=== PATIENT | female | born 1965 | race American Indian/Alaskan Native ===

== ENCOUNTER 2018-01-15 02:25 | Inpatient (IN) | payer BC ==
[2018-01-15] MEDS ORDERED: NACL 0.9% 1000 ML 1,000 ML IV ONE ×2 (02:37→14:59)
[2018-01-15] MEDS ORDERED: ZOFRAN ODT PO ONE (02:40)
[2018-01-15 02:56] LABS: Basophils # (Auto) 0.1 K/mm3 (0.0-0.1); Basophils % (Auto) 0.5 % (0.0-1.8); Eosinophils % (Auto) 0.1 % (0.0-4.3); Hematocrit 39.7 % (30.3-42.9); Hemoglobin 13.2 gm/dl (10.1-14.3); Lymphocytes # (Auto) 2.4 K/mm3 (1.2-5.4); Mean Corpuscular HGB Conc 33 % (30-34); Mean Corpuscular Hemoglobin 31 pg (28-32); Mean Corpuscular Volume 94 fl (79-97); Monocytes # (Auto) 0.7 K/mm3 (0.0-0.8); Monocytes % (Auto) 4.9 % (0.0-7.3); Platelet Count 529 K/mm3 (140-440); Red Blood Count 4.22 M/mm3 (3.65-5.03); Red Cell Distribution Width 13.5 % (13.2-15.2)
[2018-01-15 03:15] LABS: Alanine Aminotransferase 17 units/L (7-56); Albumin 4.7 g/dL (3.9-5); BUN/Creatinine Ratio 15; Blood Urea Nitrogen 12 mg/dL (7-17); Hemolysis Index 7
--- NOTE | 2018-01-15 03:32 | Cat Scan Report ---
FINAL REPORT EXAM: CT ABDOMEN PELVIS WO CON HISTORY: R/O SBO COMPARISON: None available. TECHNIQUE: Contiguous axial images were obtained. Additional sagittal and coronal reformatted images were obtained. FINDINGS: Partial visualization of bilateral mammoplasties which are grossly intact. Mild linear atelectasis at the visualized lung bases. No calcified gallstones. Liver, spleen, pancreas are grossly unremarkable. Mild nodular thickening of adrenal glands. No nephrolithiasis or hydronephrosis. Aorta and IVC normal in caliber. Mild calcification aorta. No distal ureteral urinary bladder calculi. There are few pelvic phleboliths which appear to be separate from the distal ureters. Uterus is grossly unremarkable. Bilateral ovaries are grossly unremarkable. No free fluid in the pelvis. There are few prominent pelvic lymph nodes. For example there is a left external iliac chain lymph node measuring 11 x 12 millimeters. On the right, is external iliac chain lymph node measuring 11 x 8 millimeters in axial dimension. There are few prominent but technically not enlarged retroperitoneal lymph nodes. Pelvic lymph nodes could be reactive. There is dilatation of fluid-filled small bowel loops throughout the abdomen upper pelvis. Dilated small bowel loops measure up to 4.8 centimeters in greatest diameter and the left lower abdomen. There has been prior surgery involving small bowel loops in the left mid abdomen. This appears to be the transition point is concerning for obstruction at the surgical site. More distal small bowel loops are relatively decompressed. No pneumatosis or free air. There is fluid-like stool in the right colon. No evidence of complete small bowel obstruction at this time. The appendix is not visualized may be small in size are surgically absent. Lumbar vertebral body heights are preserved. Bony pelvis is grossly intact. IMPRESSION: Findings compatible with developing small bowel obstruction. Transition point appears to be at site of prior surgery at the anastomosis between small bowel loops in the left lower abdomen. There is dilatation of small bowel loops proximal to the anastomotic site measuring up to 4.8 centimeters in diameter. There is some stool-like material within the dilated small bowel which could indicate a partially chronic component to this process. No pneumatosis or free air.
[2018-01-15 03:42] LABS: Bacteria,Urine 1+ /HPF (Negative); Bilirubin,Urine NEG (Negative); Blood,Urine NEG (Negative); Color,Urine Yellow (Yellow); Mucus,Urine FEW /HPF; Protein,Urine >500 mg/dL (Negative); Urobilinogen,Urine < 2.0 mg/dL (<2.0)
[2018-01-15] MEDS ORDERED: ZOFRAN IV ONE (04:14)
[2018-01-15] MEDS ORDERED: DILAUDID IV ONE (04:14)
--- NOTE | 2018-01-15 05:16 | Emergency Department Report ---
ED General Adult HPI - General Chief complaint: Abdominal Pain Stated complaint: ABD PAIN VOMITING Time Seen by Provider: 01/15/18 05:13 Source: patient Mode of arrival: Ambulatory Limitations: No Limitations - History of Present Illness Initial comments: 1 day of upper abdominal pain that is constant. Made worse with eating. Associated with nausea and vomiting. No diarrhea. Afebrile. It feels like the last time she had a small bowel obstruction. That was 10 years ago. No urinary or vaginal symptoms. No flatus. Severity scale (0 -10): 8 - Related Data Home Medications Medication Instructions Recorded Confirmed Last Taken Aspirin [Adult Aspirin] 81 mg PO DAILY 01/15/18 01/15/[address] [Senait De Leon] 75 mg PO DAILY 01/15/18 01/15/18 Unknown Metoprolol [Lopressor TAB] 50 mg PO DAILY 01/15/18 01/15/18 Unknown Spironolactone-Hctz 25-25 Tab 25 mg PO DAILY 01/15/18 01/15/18 Unknown Allergies Allergy/AdvReac Type Severity Reaction Status Date / Time No Known Allergies Allergy Unverified 01/15/18 02:32 ED Review of Systems ROS: Stated complaint: ABD PAIN VOMITING Other details as noted in HPI Comment: All other systems reviewed and negative Gastrointestinal: abdominal pain, nausea, vomiting ED Past Medical Hx - Past Medical History Previous Medical History?: Yes Additional medical history: SBO - Surgical History Past Surgical History?: Yes Additional Surgical History: SB - Social History Smoking Status: Former Smoker Substance Use Type: Alcohol - Medications Home Medications: Home Medications Medication Instructions Recorded Confirmed Last Taken Type Aspirin [Adult Aspirin] 81 mg PO DAILY 01/15/18 01/15/[address] [Senait De Leon] 75 mg PO DAILY 01/15/18 01/15/18 Unknown History Metoprolol [Lopressor TAB] 50 mg PO DAILY 01/15/18 01/15/18 Unknown History Spironolactone-Hctz 25-25 Tab 25 mg PO DAILY 01/15/18 01/15/18 Unknown History ED Physical Exam - General Limitations: No Limitations General appearance: alert, in no apparent distress - Head Head exam: Present: atraumatic, normocephalic - Eye Eye exam: Present: normal appearance - ENT ENT exam: Present: mucous membranes moist - Neck Neck exam: Present: normal inspection - Respiratory Respiratory exam: Present: normal lung sounds bilaterally. Absent: respiratory distress - Cardiovascular Cardiovascular Exam: Present: regular rate, normal rhythm. Absent: systolic murmur, diastolic murmur, rubs, gallop - GI/Abdominal GI/Abdominal exam: Present: soft, tenderness (bilateral upper abd pain), normal bowel sounds. Absent: guarding, rebound - Extremities Exam Extremities exam: Present: normal inspection - Back Exam Back exam: Present: normal inspection - Neurological Exam Neurological exam: Present: alert, oriented X3 - Psychiatric Psychiatric exam: Present: normal affect, normal mood - Skin Skin exam: Present: warm, dry, intact, normal color. Absent: rash ED Course Vital Signs 01/15/18 01/15/18 01/15/18 02:24 04:00 04:03 Temperature 97.8 F 98.2 F Pulse Rate 84 73 75 Respiratory 20 15 14 Rate Blood Pressure 145/97 Blood Pressure 134/87 [Right] O2 Sat by Pulse 94 94 95 Oximetry 01/15/18 01/15/18 01/15/18 04:15 04:30 04:32 Temperature Pulse Rate 76 66 Respiratory 10 L 10 L 14 Rate Blood Pressure 136/83 125/77 Blood Pressure [Right] O2 Sat by Pulse 97 90 Oximetry 01/15/18 04:44 Temperature Pulse Rate Respiratory 11 L Rate Blood Pressure Blood Pressure [Right] O2 Sat by Pulse 99 Oximetry ED Medical Decision Making - Lab Data Result diagrams: 01/15/18 02:44 01/15/18 02:44 - Medical Decision Making 52-year-old female with past medical history of gastric bypass surgery years ago, small bowel obstruction that presents with abdominal pain. His eyes are stable. Patient is well-appearing. Moderate abdominal pain on exam. Mild leukocytosis appreciated. Likely this is reactionary given the patient's history of vomiting. CT abdomen and pelvis shows evidence of a small bowel obstruction. Patient has been given IV fluids/social friend says Dilaudid. She will be admitted for further management. - Differential Diagnosis SBO, pancreatitis, UTI, gastroenteritis, cholecystitis, sepsis Critical care attestation.: If time is entered above; I have spent that time in minutes in the direct care of this critically ill patient, excluding procedure time. ED Disposition Clinical Impression: Small bowel obstruction Disposition: OP ADMIT IP TO THIS HOSP Is pt being admited?: Yes Does the pt Need Aspirin: No Condition: Stable Instructions: Abdominal Pain (ED) Referrals: PRIMARY CARE, [Primary Care Provider] - 3-5 Days
[2018-01-15] MEDS ORDERED: ZOFRAN IV PRN (06:08)
[2018-01-15] MEDS ORDERED: TYLENOL PR PRN (06:09)
[2018-01-15] MEDS ORDERED: NACL 0.9% 1000 ML 1,000 ML IV SCH (07:00)
--- NOTE | 2018-01-15 09:00 | History and Physical Report ---
CHIEF COMPLAINT: Abdominal pain. HISTORY OF PRESENTING ILLNESS: The patient is a 52-year-old female who has been having abdominal pain going on since yesterday associated with nausea and vomiting. There is no history of fever, no history of chills. The patient also denied history of dizziness, chest pain or shortness of breath and states that she has not been passing any gas or stools and presented to the Emergency Room where she was evaluated and found to have small bowel obstruction developing on CT scan report. PAST MEDICAL HISTORY: Pertinent for small bowel obstruction. Also, the patient has past medical history of hypertension. PAST SURGICAL HISTORY: Pertinent for surgery for small bowel obstruction. FAMILY HISTORY: Noncontributory. SOCIAL HISTORY: The patient is a former cigarette smoker, but does not smoke cigarette anymore. The patient drinks alcohol, does not use illicit drugs. MEDICATIONS: The patient is on aspirin 81 mg by mouth daily, Voltaren DS 75 mg by mouth daily, Lopressor 50 mg by mouth daily, spironolactone/hydrochlorothiazide 25/25 one by mouth daily. ALLERGIES: There are no known drug allergies. REVIEW OF SYSTEMS: CONSTITUTIONAL: There is no fever, no chills, no diaphoresis. HEENT: There is no headache or sore throat. CARDIOVASCULAR SYSTEM: There is no chest pain or orthopnea. RESPIRATORY SYSTEM: There is no shortness of breath or cough. GASTROINTESTINAL SYSTEM: Abdominal pain present. Nausea and vomiting present. NEUROLOGICAL SYSTEM: There is no numbness, no dizziness, no altered mental status. MUSCULOSKELETAL SYSTEM: There is no joint pain or swelling. DERMATOLOGICAL SYSTEM: There is no skin rash or itching. GENITOURINARY SYSTEM: There is no dysuria, hematuria, or flank pain. Rest of system review is normal. PHYSICAL EXAMINATION: GENERAL: At the time of exam, the patient was found to be alert, oriented x 3 and not in acute distress. VITAL SIGNS: At the time of initial presentation show temperature of 97.8 degrees Fahrenheit, pulse of 84, respiration 20, blood pressure 145/97, O2 sat of 94% on room air. HEENT: Shows pupils to be equal, round, reactive to light and accommodating. Extraocular muscles are intact. NECK: Neck is supple with no JVD or carotid bruit. CARDIOVASCULAR SYSTEM: Shows normal first and second heart sounds with no gallops or murmur. RESPIRATORY SYSTEM: Shows good air entry on both sides of the lung with no abnormal breath sounds. GASTROINTESTINAL SYSTEM: Shows abdomen to be full, soft with generalized tenderness, but no guarding, no rigidity and no rebound tenderness. Bowel sound was hypoactive. There is no organomegaly elicited. MUSCULOSKELETAL SYSTEM: Shows no joint swelling or tenderness. DERMATOLOGICAL SYSTEM: Shows no skin rash. GENITOURINARY SYSTEM: Showing no costovertebral angle tenderness. PERTINENT LABORATORY AND IMAGING STUDIES: The patient had CBC done that shows elevated white count of 13,800 with normal hemoglobin and normal hematocrit and slightly elevated platelet counts of 529. CBC differential shows elevated segmented neutrophil of 77.5%. The patient's chemistry showed low sodium of 136, low chloride of 92.7, elevated blood glucose of 160. High total protein of 8.4. Urinalysis show yellow clear urine with high urine pH of 8, trace urine leukocyte esterase and elevated urine WBC of 11. Imaging studies; the patient has CT of the abdomen and pelvis without contrast done that shows evidence of development of small bowel obstruction. DIAGNOSES: 1. Small bowel obstruction. 2. Urinary tract infection. PLAN: 1. The patient will be admitted to medical/surgical burgess. 2. The patient will have nasogastric suctioning tube dropped into the stomach with intermittent low wall suctioning applied. 3. The patient will be on IV morphine 2 mg every 4 hours as needed for pain and IV Zofran 4 mg every 8 hours as needed for nausea and vomiting. 4. The patient will be on normal saline at 125 mL an hour. 5. The patient will be on Tylenol 650 mg rectal every 4 hours for fever and headache and will be on IV Levaquin 750 mg daily. 6. The patient will be on IV Levaquin 750 mg daily. 7. The patient will have a general surgical consult with Dr. Michael. JOB# [id number] OCN/NTS
[2018-01-15] MEDS: MORPHINE IV PRN ×2 (10:46→23:09)
[2018-01-15] MEDS ORDERED: PNEUMOVAX 23 IM ONE (12:00)
[2018-01-15] MEDS: LEVAQUIN 750MG/150ML 750 MG/150 ML BAG IV SCH (12:32)
[2018-01-15] MEDS: HEPARIN SUB-Q SCH ×2 (12:35→22:35)
--- NOTE | 2018-01-15 13:05 | Event Note ---
Date: 01/15/18 Patient is 52 yo with small bowel obstruction. keep NPO. Surgeon to see.
--- NOTE | 2018-01-15 15:10 | Consultation ---
History of Present Illness Consult date: 01/15/18 Reason for consult: abdominal pain Requesting physician: ANA HUGO Chief complaint: Abdominal pain - History of present illness History of present illness: 52yo F with a history of SBO and bowel resection 10 years ago presents to the ED with a 1 day history of acute onset abdominal pain, nausea, vomiting. She reports she has not had a bowel movement or pass gas in at least one to 2 days. She reports that she is feeling a little bit better. There is no nausea or vomiting now. Her abdominal pain is less. She has not passed any gas or had any bowel movements yet. She is burping. History significant for having a bowel obstruction secondary to adhesions from a bowel repair that was done during a tubal ligation. At that time, she had to be rushed to surgery for the obstruction and a small bowel resection was done with primary anastomosis. About a year or 2 after that point, she began requiring stool softener is to have a bowel movement. If she did not take her mag 07 stool softener, she would not have a bowel movement. Last week, she had a viral illness that caused her to return home from work early. 2 days ago she did not take her stool softener, and woke up in the morning with upper abdominal pain. She had nausea and vomiting as well. The emesis was clear and with mucus. As mentioned above, she is feeling better now. Denies any recent F/ C. She it last week. Past History Past Medical History: hypertension Past Surgical History: (times 2), bowel surgery (small bowel resection for SBO 10 years ago), Other (BTL with bowel repair.) Social history: smoking (hooka - occasionally). denies: alcohol abuse (may have 1-2 drinks every few weeks), prescription drug abuse, IV drug use Family history: denies: no significant family history Medications and Allergies Allergies Allergy/AdvReac Type Severity Reaction Status Date / Time No Known Allergies Allergy Unverified 01/15/18 02:32 Home Medications Medication Instructions Recorded Confirmed Last Taken Type Aspirin [Adult Aspirin] 81 mg PO DAILY 01/15/18 01/15/[address] [Voltaren Dr] 75 mg PO DAILY 01/15/18 01/15/18 Unknown History Metoprolol [Lopressor TAB] 50 mg PO DAILY 01/15/18 01/15/18 Unknown History Spironolactone-Hctz 25-25 Tab 25 mg PO DAILY 01/15/18 01/15/18 Unknown History Active Meds: Active Medications Acetaminophen (Tylenol) 650 mg ID Q4H PRN PRN Reason: Fever >101 Heparin Sodium (Porcine) (Heparin) 5,000 unit SUB-Q Q12HR THAIS Last Admin: 01/15/18 12:35 Dose: 5,000 unit Levofloxacin/Dextrose (Levaquin 750mg/150ml) 750 mg in 150 mls @ 100 mls/hr IV Q24HR THAIS; Protocol Last Admin: 01/15/18 12:32 Dose: 100 mls/hr Metronidazole (Flagyl 500 Mg/100 Ml) 500 mg in 100 mls @ 100 mls/hr IV Q8HR THAIS ; Protocol Sodium Chloride (Nacl 0.9% 1000 Ml) 1,000 mls @ 125 mls/hr IV DIRECT THAIS Last Admin: 01/15/18 12:32 Dose: 125 mls/hr Sodium Chloride (Nacl 0.9% 1000 Ml) 1,000 mls @ 999 mls/hr IV BOLUS ONE Stop: 01/15/18 15:59 Morphine Sulfate (Morphine) 2 mg IV Q4H PRN PRN Reason: Pain, Moderate (4-6) Last Admin: 01/15/18 10:46 Dose: 2 mg Ondansetron HCl (Zofran) 4 mg IV Q8H PRN PRN Reason: Nausea And Vomiting Review of Systems - Constitutional no fever, no chills - EENT Ears, nose, mouth and throat: sore throat (little bit left over from last week) - Cardiovascular no chest pain - Respiratory no cough, no shortness of breath - Gastrointestinal abdominal pain (in mid upper abdomen), constipation, belching, no nausea, no vomiting, no hematemesis, no coffee ground emesis, no BRBPR, no melena, no hematochezia, no heartburn, no indigestion - Genitourinary Genitourinary: no pelvic pain, no dysuria - Muskuloskeletal no low back pain - Integumentary no rash - Hematologic/Lymphatic no easy bruising, no easy bleeding Exam Vital Signs Temp Pulse Resp BP Pulse Ox 97.8 F 84 20 145/97 94 01/15/18 02:24 01/15/18 02:24 01/15/18 02:24 01/15/18 02:24 01/15/18 02:24 - General physical appearance Positive: no distress, no pain, other (pleasant female. appears comfortable. Does not appear ill. Working on her laptop when I entered) - Eyes Positive: normal occular movement. Negative: pale, icteric - Respiratory Positive: normal expansion, normal respiratory effort, clear to auscultation - Cardiovascular Rhythm: regular - Abdomen Abdomen: Present: soft, tender (very minimal in upper midline), bowel sounds hypoactive (but normal sounding. No high pitched bowel sounds. No hollow sounds. ), surgical scars (well healed. ), other (no pelvic shake tenderness). Absent: distended, guarding, rigid, wound Hernia: none - Integumentary no rash, no growths, no abnormal pigmentation - Neurologic Neurologic: alert and oriented to time, place and person, motor strength and sensation are grossly intact - Psychiatric Psychiatric: appropriate mood/affect, intact judgment & insight Results - Labs 01/15/18 02:44 01/15/18 02:44 Abnormal lab results 01/15/18 01/15/18 01/15/18 Range/Units 02:44 02:44 03:07 WBC 13.8 H (4.5-11.0) K/mm3 Plt Count 529 H (140-440) K/mm3 Seg Neutrophils % 77.5 H (40.0-70.0) % Seg Neutrophils # 10.7 H (1.8-7.7) K/mm3 Sodium 136 L (137-145) mmol/L Chloride 92.7 L (98-107) mmol/L Glucose 160 H (65-100) mg/dL Total Protein 8.4 H (6.3-8.2) g/dL Urine pH 8.0 H (5.0-7.0) Urine WBC (Auto) 11.0 H (0.0-6.0) /HPF Diabetes panel 01/15/18 Range/Units 02:44 Sodium 136 L (137-145) mmol/L Potassium 4.0 (3.6-5.0) mmol/L Chloride 92.7 L (98-107) mmol/L Carbon Dioxide 28 (22-30) mmol/L BUN 12 (7-17) mg/dL Creatinine 0.8 (0.7-1.2) mg/dL Glucose 160 H (65-100) mg/dL Calcium 10.0 (8.4-10.2) mg/dL AST 18 (5-40) units/L ALT 17 (7-56) units/L Alkaline Phosphatase 83 (35-129) units/L Total Protein 8.4 H (6.3-8.2) g/dL Albumin 4.7 (3.9-5) g/dL Calcium panel 01/15/18 Range/Units 02:44 Calcium 10.0 (8.4-10.2) mg/dL Albumin 4.7 (3.9-5) g/dL Pituitary panel 01/15/18 Range/Units 02:44 Sodium 136 L (137-145) mmol/L Potassium 4.0 (3.6-5.0) mmol/L Chloride 92.7 L (98-107) mmol/L Carbon Dioxide 28 (22-30) mmol/L BUN 12 (7-17) mg/dL Creatinine 0.8 (0.7-1.2) mg/dL Glucose 160 H (65-100) mg/dL Calcium 10.0 (8.4-10.2) mg/dL Adrenal panel 01/15/18 Range/Units 02:44 Sodium 136 L (137-145) mmol/L Potassium 4.0 (3.6-5.0) mmol/L Chloride 92.7 L (98-107) mmol/L Carbon Dioxide 28 (22-30) mmol/L BUN 12 (7-17) mg/dL Creatinine 0.8 (0.7-1.2) mg/dL Glucose 160 H (65-100) mg/dL Calcium 10.0 (8.4-10.2) mg/dL Total Bilirubin 0.30 (0.1-1.2) mg/dL AST 18 (5-40) units/L ALT 17 (7-56) units/L Alkaline Phosphatase 83 (35-129) units/L Total Protein 8.4 H (6.3-8.2) g/dL Albumin 4.7 (3.9-5) g/dL - Imaging CT scan - abdomen: report reviewed, image reviewed CT scan - pelvis: report reviewed, image reviewed Assessment and Plan - Patient Problems (1) Small bowel obstruction Current Visit: Yes Status: Acute Plan to address problem: pt is stable. Abdomen is fairly benign. she feels as though things are already getting better. Can hold off on NGT as she is not symptomatic and her stomach/ proximal bowel are not dilated. Will bolus with extra fluids as she appears dehydrated. No need for urgent surgical intervention. Will follow with serial exams. Would keep NPO for now. Chewing gum is ok. Her history is suggestive that she has a stenotic area in the small bowel. Probably involving the anastomosis. For this, if we do not end up doing surgery now, we will get a small bowel follow through once she has recovered and then discuss elective surgery if there is a stenotic segment. Pt understands and is in agreement. Please call with any questions. Time=45min
[2018-01-15] MEDS: FLAGYL 500 MG/100 ML 500 MG/100 ML BAG IV SCH ×2 (16:27→22:34)
[2018-01-16] MEDS: D5NS 1,000 ML IV SCH ×2 (02:57→18:00)
[2018-01-16] MEDS: FLAGYL 500 MG/100 ML 500 MG/100 ML BAG IV SCH ×3 (06:19→23:04)
[2018-01-16 07:00] LABS: Hematocrit 31.4 % (30.3-42.9); Hemoglobin 10.5 gm/dl (10.1-14.3); Mean Corpuscular HGB Conc 33 % (30-34); Mean Corpuscular Hemoglobin 32 pg (28-32); Mean Corpuscular Volume 95 fl (79-97); Platelet Count 404 K/mm3 (140-440); Red Blood Count 3.32 M/mm3 (3.65-5.03); Red Cell Distribution Width 13.7 % (13.2-15.2)
[2018-01-16 07:18] LABS: BUN/Creatinine Ratio 11; Blood Urea Nitrogen 8 mg/dL (7-17); Calcium 8.2 mg/dL (8.4-10.2); Hemolysis Index 1
--- NOTE | 2018-01-16 08:17 | Progress Note ---
Assessment and Plan - Patient Problems (1) Small bowel obstruction Current Visit: Yes Status: Acute Plan to address problem: pt is stable. Patient appears to be doing well. Bowels seem to be opening up. We'll begin clear liquid diet today. If she does well today, I will advance her diet tomorrow and start her on a bowel regimen. If that is tolerated, she may be discharged home over the weekend. I have asked that she follow-up with us in a few weeks to discuss further evaluation of her small bowel. Her history is suggestive that she has a stenotic area in the small bowel. Probably involving the anastomosis. For this, if we do not end up doing surgery now, we will get a small bowel follow through once she has recovered and then discuss elective surgery if there is a stenotic segment. Pt understands and is in agreement. Please call with any questions. Time=10min Subjective Date of service: 01/16/18 Patient Reports: Positive: no new complaints, feels better, pain is less, bowel movement (x2). Negative: nausea, vomiting Objective Vital Signs - 12hr 01/15/18 01/16/18 23:45 05:28 Temperature 98.3 F 98.0 F Pulse Rate 71 63 Respiratory 18 16 Rate Blood Pressure 119/61 114/71 O2 Sat by Pulse 97 98 Oximetry - General physical appearance no distress, no pain, other (looks well) - Eyes normal occular movement - Respiratory normal expansion, normal respiratory effort - Abdomen soft, not tender, not distended, not guarding, not rigid - Psychiatric oriented to time, oriented to person, oriented to place, speech is normal, memory intact - Labs 01/16/18 05:37 01/16/18 05:37 Diabetes panel 01/16/18 Range/Units 05:37 Sodium 141 (137-145) mmol/L Potassium 3.3 L (3.6-5.0) mmol/L Chloride 105.2 (98-107) mmol/L Carbon Dioxide 26 (22-30) mmol/L BUN 8 (7-17) mg/dL Creatinine 0.7 (0.7-1.2) mg/dL Glucose 103 H (65-100) mg/dL Calcium 8.2 L D (8.4-10.2) mg/dL Calcium panel 01/16/18 Range/Units 05:37 Calcium 8.2 L D (8.4-10.2) mg/dL Pituitary panel 01/16/18 Range/Units 05:37 Sodium 141 (137-145) mmol/L Potassium 3.3 L (3.6-5.0) mmol/L Chloride 105.2 (98-107) mmol/L Carbon Dioxide 26 (22-30) mmol/L BUN 8 (7-17) mg/dL Creatinine 0.7 (0.7-1.2) mg/dL Glucose 103 H (65-100) mg/dL Calcium 8.2 L D (8.4-10.2) mg/dL Adrenal panel 01/16/18 Range/Units 05:37 Sodium 141 (137-145) mmol/L Potassium 3.3 L (3.6-5.0) mmol/L Chloride 105.2 (98-107) mmol/L Carbon Dioxide 26 (22-30) mmol/L BUN 8 (7-17) mg/dL Creatinine 0.7 (0.7-1.2) mg/dL Glucose 103 H (65-100) mg/dL Calcium 8.2 L D (8.4-10.2) mg/dL
--- NOTE | 2018-01-16 09:22 | Progress Note ---
Assessment and Plan Assessment and plan: Small bowel obstruction. Improving. Had bowel movements x 2 yesterday Started on clear liquid diet Hypertension.Monitor BP DVT prophylaxis with Heparin subcut Hypokalemia. Replace iv and repeat. Morbid obesity. Counseled on diet and exercise to lose weight Full code status History Interval history: Less abdominal pain Had bowel movements x 2 overnight Hospitalist Physical - Physical exam Narrative exam: GEN:Not in acute distress,morbidly obese HEENT: Normocephalic, atraumatic, Neck: supple, No JVD Lungs:Clear to auscultation bilaterally, no crackles, no wheeze Heart:S1 and S2 reg, no murmurs, rubs or gallop Abd:soft, non tender, non-distended, bowel sounds present Ext: No edema, clubbing or cyanosis Neuro:Awake,alert,oriented x 3, no focal neurological signs Psych: Normal mood - Constitutional Vitals: Temp Pulse Resp BP Pulse Ox 98.0 F 63 16 114/71 98 01/16/18 05:28 01/16/18 05:28 01/16/18 05:28 01/16/18 05:28 01/16/18 05:28 Results - Labs CBC & Chem 7: 01/16/18 05:37 01/16/18 05:37 Labs: Laboratory Last Values WBC 8.1 K/mm3 (4.5-11.0) 01/16/18 05:37 RBC 3.32 M/mm3 (3.65-5.03) L 01/16/18 05:37 Hgb 10.5 gm/dl (10.1-14.3) 01/16/18 05:37 Hct 31.4 % (30.3-42.9) D 01/16/18 05:37 MCV 95 fl (79-97) 01/16/18 05:37 MCH 32 pg (28-32) 01/16/18 05:37 MCHC 33 % (30-34) 01/16/18 05:37 RDW 13.7 % (13.2-15.2) 01/16/18 05:37 Plt Count 404 K/mm3 (140-440) 01/16/18 05:37 Lymph % (Auto) 17.0 % (13.4-35.0) 01/15/18 02:44 [place] % (Auto) 4.9 % (0.0-7.3) 01/15/18 02:44 Eos % (Auto) 0.1 % (0.0-4.3) 01/15/18 02:44 Baso % (Auto) 0.5 % (0.0-1.8) 01/15/18 02:44 Lymph # 2.4 K/mm3 (1.2-5.4) 01/15/18 02:44 [place] # 0.7 K/mm3 (0.0-0.8) 01/15/18 02:44 Eos # 0.0 K/mm3 (0.0-0.4) 01/15/18 02:44 Baso # 0.1 K/mm3 (0.0-0.1) 01/15/18 02:44 Seg Neutrophils % 77.5 % (40.0-70.0) H 01/15/18 02:44 Seg Neutrophils # 10.7 K/mm3 (1.8-7.7) H 01/15/18 02:44 Sodium 141 mmol/L (137-145) 01/16/18 05:37 Potassium 3.3 mmol/L (3.6-5.0) L 01/16/18 05:37 Chloride 105.2 mmol/L (98-107) 01/16/18 05:37 Carbon Dioxide 26 mmol/L (22-30) 01/16/18 05:37 Anion Gap 13 mmol/L 01/16/18 05:37 BUN 8 mg/dL (7-17) 01/16/18 05:37 Creatinine 0.7 mg/dL (0.7-1.2) 01/16/18 05:37 Estimated GFR > 60 ml/min 01/16/18 05:37 BUN/Creatinine Ratio 11 % 01/16/18 05:37 Glucose 103 mg/dL (65-100) H 01/16/18 05:37 Calcium 8.2 mg/dL (8.4-10.2) L D 01/16/18 05:37 Total Bilirubin 0.30 mg/dL (0.1-1.2) 01/15/18 02:44 AST 18 units/L (5-40) 01/15/18 02:44 ALT 17 units/L (7-56) 01/15/18 02:44 Alkaline Phosphatase 83 units/L (35-129) 01/15/18 02:44 Total Protein 8.4 g/dL (6.3-8.2) H 01/15/18 02:44 Albumin 4.7 g/dL (3.9-5) 01/15/18 02:44 Albumin/Globulin Ratio 1.3 % 01/15/18 02:44 Urine Color Yellow (Yellow) 01/15/18 03:07 Urine Turbidity Clear (Clear) 01/15/18 03:07 Urine pH 8.0 (5.0-7.0) H 01/15/18 03:07 Ur Specific [place] 1.019 (1.003-1.030) 01/15/18 03:07 Urine Protein >500 mg/dL (Negative) 01/15/18 03:07 Urine Glucose (UA) Neg mg/dL (Negative) 01/15/18 03:07 Urine Ketones Neg mg/dL (Negative) 01/15/18 03:07 Urine Blood Neg (Negative) 01/15/18 03:07 Urine Nitrite Neg (Negative) 01/15/18 03:07 Urine Bilirubin Neg (Negative) 01/15/18 03:07 Urine Urobilinogen < 2.0 mg/dL (<2.0) 01/15/18 03:07 Ur Leukocyte Esterase Tr (Negative) 01/15/18 03:07 Urine WBC (Auto) 11.0 /HPF (0.0-6.0) H 01/15/18 03:07 Urine RBC (Auto) 4.0 /HPF (0.0-6.0) 01/15/18 03:07 U Epithel Cells (Auto) 12.0 /HPF (0-13.0) 01/15/18 03:07 Urine Bacteria (Auto) 1+ /HPF (Negative) 01/15/18 03:07 Urine Mucus Few /HPF 01/15/18 03:07
[2018-01-16] MEDS: LEVAQUIN 750MG/150ML 750 MG/150 ML BAG IV SCH (10:51)
[2018-01-16] MEDS: HEPARIN SUB-Q SCH ×2 (10:52→23:06)
[2018-01-16] MEDS: KCL 10MEQ/100ML 10 MEQ/100 ML BAG IV SCH ×2 (10:52→12:30)
[2018-01-16] MEDS ORDERED: K-DUR PO ONE (15:00)
[2018-01-17 05:28] LABS: BUN/Creatinine Ratio 6; Blood Urea Nitrogen 5 mg/dL (7-17); Calcium 8.6 mg/dL (8.4-10.2); Hemolysis Index 10
[2018-01-17] MEDS: FLAGYL 500 MG/100 ML 500 MG/100 ML BAG IV SCH ×2 (05:57→14:34)
--- NOTE | 2018-01-17 08:45 | Progress Note ---
Assessment and Plan - Patient Problems (1) Small bowel obstruction Current Visit: Yes Status: Acute Plan to address problem: pt is stable. Patient appears to be doing well. Bowels seem to have opened up. Advance to full liquid diet. Will order miralax to help clear out any residual material that may have collected behind presumed stenotic area. If she does well with lunch, she may be discharged home from my perspective. Would like her to stay on full liquid diet for 5-7 days. Encouraged her to start daily metamucil/citracel. f/u with me in 2-3 weeks. D/C IVF. If Abx were for leukocytosis and "SBO", I would d/c them. Defer to Hospitalist. Please call with any questions. Time=10min Subjective Date of service: 01/17/18 Patient Reports: Positive: no new complaints (Pain resolved!), tolerating liquids well. Negative: nausea, vomiting Objective Vital Signs - 12hr 01/16/18 01/17/18 23:29 05:36 Temperature 98.0 F 98.5 F Pulse Rate 72 76 Respiratory 18 16 Rate Blood Pressure 137/84 127/74 O2 Sat by Pulse 98 96 Oximetry - General physical appearance no distress, no pain - Eyes normal occular movement - Respiratory normal expansion, normal respiratory effort - Abdomen soft, not tender, not distended, not guarding, not rigid - Psychiatric oriented to time, oriented to person, oriented to place, speech is normal, memory intact - Labs 01/16/18 05:37 01/17/18 04:30 Diabetes panel 01/17/18 Range/Units 04:30 Sodium 141 (137-145) mmol/L Potassium 3.7 (3.6-5.0) mmol/L Chloride 106.7 (98-107) mmol/L Carbon Dioxide 27 (22-30) mmol/L BUN 5 L (7-17) mg/dL Creatinine 0.8 (0.7-1.2) mg/dL Glucose 113 H (65-100) mg/dL Calcium 8.6 (8.4-10.2) mg/dL Calcium panel 01/17/18 Range/Units 04:30 Calcium 8.6 (8.4-10.2) mg/dL Pituitary panel 01/17/18 Range/Units 04:30 Sodium 141 (137-145) mmol/L Potassium 3.7 (3.6-5.0) mmol/L Chloride 106.7 (98-107) mmol/L Carbon Dioxide 27 (22-30) mmol/L BUN 5 L (7-17) mg/dL Creatinine 0.8 (0.7-1.2) mg/dL Glucose 113 H (65-100) mg/dL Calcium 8.6 (8.4-10.2) mg/dL Adrenal panel 01/17/18 Range/Units 04:30 Sodium 141 (137-145) mmol/L Potassium 3.7 (3.6-5.0) mmol/L Chloride 106.7 (98-107) mmol/L Carbon Dioxide 27 (22-30) mmol/L BUN 5 L (7-17) mg/dL Creatinine 0.8 (0.7-1.2) mg/dL Glucose 113 H (65-100) mg/dL Calcium 8.6 (8.4-10.2) mg/dL
[2018-01-17] MEDS ORDERED: MIRALAX 3350 PO SCH (10:00)
[2018-01-17] MEDS: LEVAQUIN 750MG/150ML 750 MG/150 ML BAG IV SCH (10:50)
[2018-01-17] MEDS: HEPARIN SUB-Q SCH (10:51)
--- NOTE | 2018-01-17 15:26 | Discharge Summary ---
Providers - Providers Date of Admission: 01/15/18 06:04 Date of discharge: 01/17/18 Attending physician: NINO REYNOLDS 01/15/18 13:57 Consult to Physician [CONS] Routine Comment: Consulting Provider: LUKAS ALFRED Physician Instructions: Reason For Exam: small bowel obstruction Primary care physician: FLASK PUSHER Hospitalization Condition: Fair Disposition: DC-01 TO HOME OR SELFCARE Core Measure Documentation - Palliative Care Palliative Care/ Comfort Measures: Not Applicable - Core Measures Any of the following diagnoses?: none Exam - Constitutional Vitals: Temp Pulse Resp BP Pulse Ox 98.0 F 80 20 118/62 99 01/17/18 13:13 01/17/18 13:13 01/17/18 13:13 01/17/18 13:13 01/17/18 13:13 Plan Activity: advance as tolerated Diet: low fat, low cholesterol, low salt, other (Full liquid diet for 7 days then advance as tolerated) Additional Instructions: 1.Follow up with PCP or [facility] in 1 week. 2.Follow up with Dr. Alfred in 2-3 weks. 3.Full liquid diet for 1 week, then advance as tolerated Follow up with: PRIMARY CARE, [Primary Care Provider] - 3-5 Days Prescriptions: Ciprofloxacin HCl [Ciprofloxacin TAB] 500 mg PO BID 3 Days tablet Psyllium Husk [Metamucil] 0.4 gm PO DAILY 30 Days capsule
[2018-01-17 18:11] VITALS: BP 137/94
== END 2018-01-17 18:00 | disposition home or self-care (01) | DRG 389 ==
LOC: ED 02:25 → 3A 06:04
PROVIDERS: ADMIT Internal Medicine; ATTEND Internal Medicine
PROC: 3E0234Z Introduction of Serum, Toxoid and Vaccine into Muscle, Percutaneous Approach (ICD-10-PCS; principal; 2018-01-15)
DX: K56.609 Unspecified intestinal obstruction, unspecified as to partial versus complete obstruction (principal); N39.0 Urinary tract infection, site not specified; Z68.41 Body mass index [BMI] 40.0-44.9, adult; E66.01 Morbid (severe) obesity due to excess calories; I10 Essential (primary) hypertension; E87.6 Hypokalemia; F17.290 Nicotine dependence, other tobacco product, uncomplicated; Z71.3 Dietary counseling and surveillance; Z98.51 Tubal ligation status; Z79.82 Long term (current) use of aspirin; Z79.899 Other long term (current) drug therapy; Z72.89 Other problems related to lifestyle; Z23 Encounter for immunization; Z98.84 Bariatric surgery status
CPT/HCPCS: 36415; 74176; 80048; 80053; 81001; 85025; 85027; 90732; 96374; 96375; 99285; J1170; J1644; J1956; J2270; J2405; J3480; J7030; J7042; Q0162